=== PATIENT | male | born 1945 ===

== ENCOUNTER → 2018-11-19 10:40 | Outpatient (BNVA) | payer MEDICARE, SELFPAY | PROVIDERS: PCP Family Medicine; Referring Provider Nurse Practitioner Family; Visit Provider Nurse Practitioner Gerontology | DX: N40.1 Benign prostatic hyperplasia with lower urinary tract symptoms (principal); N20.0 Calculus of kidney; R35.0 Frequency of micturition; I10 Essential (primary) hypertension; R31.0 Gross hematuria | CPT/HCPCS: 81003; 99204 ==